=== PATIENT | female | born 1995 | race Caucasian/White ===

== ENCOUNTER 2018-03-09 11:21 | Emergency (ER) | payer MEDICAID, SELFPAY ==
[2018-03-09 11:24] VITALS: BP 114/65; PULSE 80; RESP 16; TEMP 37; O2SAT 98
--- NOTE | 2018-03-09 11:25 | W.ED.GENAD ---
Discharge Plan Disposition Patient Disposition: HOME Condition: Stable Discharge Details Chief Complaint: Abd Prob Clinical Impression: Gastritis Primary Care Provider: [facility] ED Provider: Tello Copeland Home Meds and New Rx's Prescriptions: No Action etonogestrel [Nexplanon] 68 MG implant 68 mg SQ ONCE Qty: 1 RF: 0 Discharge Instructions Instructions: Gastritis (ED) Additional Instructions: you can try taking omeprazole daily. You can also take tums or mylanta when the burning does happen if you have worsening pain, persistent vomit, or pain in the lower abdomen return to the emergency department Medical Decision Making 22 yo female comes in with cc of luq/epigastric burning after eating for 2 weeks. Denies vomit, lower abdominal pain and fevers. No prior abdominal surgeries. She has no tenderness on exam and has clear lung sounds and appears well systemically. Has no ruq pain and bedside u/s shows no gallstones and normal appearing gallbladder so doubt biliary source of pain. Advised to try ppi and f/u with pcp, return precautions given. Denies any trauma and has no luq tenderness so doubt splenic pathology Differential Diagnosis gastritis, gerd, biliary colic HPI General Mode of arrival: ambulatory. Date/Time Provider Initiated Documentation: 03/09/18 11:25. Limitations to Documentation: no limitations. Information obtained by: patient. History of Present Illness 22 year old F presents to the emergency department with the chief complaint of abdominal pain, described as mild, with intensity rated at 3. Quality is described as burning, and is localized to the abdomen. Patient reports no radiation. Patient started experiencing this week(s) (2) and it has been intermittent. Eating worsens symptoms . Patient notes no other symptoms.. Patient did receive the following treatments prior to arrival, none Related Data Home Medications Medication Instructions Recorded Confirmed etonogestrel [Nexplanon] 68 mg SQ ONCE #1 implant 11/08/16 Allergies Allergy/AdvReac Type Severity Reaction Status Date / Time No Known Allergies Allergy Unverified 05/31/17 15:08 Review of Systems Review of Systems All systems reviewed & are unremarkable except as noted in HPI and below Constitutional Denies chills, Denies fever(s) and Denies weakness ENT Denies change in voice Cardiovascular Denies chest pain and Denies dyspnea Respiratory Denies dyspnea Gastrointestinal Denies nausea and Denies vomiting Genitourinary Denies dysuria Musculoskeletal Denies joint swelling Integumentary/Breasts Denies rash Neurologic Denies weakness [facility] Surgical History Tonsillectomy and adenoidectomy Social History Smoking/Tobacco Use Status: Never Exam Const General: no acute distress Orientation: alert HENMT Head: normal to inspection Ears: external ears normal General nose exam: external nose normal Mouth: moist mucous membranes Eyes General: appearance normal, both eyes and all related structures Neck Neck: normal visual inspection Resp Effort & Inspection: normal respiratory effort and able to speak in complete sentences Cardio Rate: regular rate GI Inspection: normal to inspection Palpation: soft Skin General skin exam: no rashes or lesions noted Neuro General: alert and oriented x3 Extrem General: normal to inspection Psych Mental Status: mental status grossly normal
[2018-03-09 11:48] VITALS: BP 114/65; PULSE 80; RESP 16; TEMP 37; O2SAT 98
--- NOTE | 2018-03-09 11:50 | ED.GENADUL_ITS ---
Discharge Plan Disposition Patient Disposition: HOME Condition: Stable Discharge Details Chief Complaint: Abd Prob Clinical Impression: Gastritis Primary Care Provider: [facility] ED Provider: Tello Copeland Home Meds and New Rx's Prescriptions: No Action etonogestrel [Nexplanon] 68 MG implant 68 mg SQ ONCE Qty: 1 RF: 0 Discharge Instructions Instructions: Gastritis (ED) Additional Instructions: you can try taking omeprazole daily. You can also take tums or mylanta when the burning does happen if you have worsening pain, persistent vomit, or pain in the lower abdomen return to the emergency department Medical Decision Making 22 yo female comes in with cc of luq/epigastric burning after eating for 2 weeks. Denies vomit, lower abdominal pain and fevers. No prior abdominal surgeries. She has no tenderness on exam and has clear lung sounds and appears well systemically. Has no ruq pain and bedside u/s shows no gallstones and normal appearing gallbladder so doubt biliary source of pain. Advised to try ppi and f/u with pcp, return precautions given. Denies any trauma and has no luq tenderness so doubt splenic pathology Differential Diagnosis gastritis, gerd, biliary colic HPI General Mode of arrival: ambulatory . Date/Time Provider Initiated Documentation: 03/09/18 11:25 . Limitations to Documentation: no limitations . Information obtained by: patient . History of Present Illness 22 year old F presents to the emergency department with the chief complaint of abdominal pain, described as mild, with intensity rated at 3. Quality is described as burning, and is localized to the abdomen. Patient reports no radiation. Patient started experiencing this week(s) (2) and it has been intermittent. Eating worsens symptoms . Patient notes no other symptoms.. Patient did receive the following treatments prior to arrival, none Related Data Home Medications Medication Instructions Recorded Confirmed etonogestrel [Nexplanon] 68 mg SQ ONCE #1 implant 11/08/16 Allergies Allergy/AdvReac Type Severity Reaction Status Date / Time No Known Allergies Allergy Unverified 05/31/17 15:08 Review of Systems Review of Systems All systems reviewed & are unremarkable except as noted in HPI and below Constitutional Denies chills, Denies fever(s) and Denies weakness ENT Denies change in voice Cardiovascular Denies chest pain and Denies dyspnea Respiratory Denies dyspnea Gastrointestinal Denies nausea and Denies vomiting Genitourinary Denies dysuria Musculoskeletal Denies joint swelling Integumentary/Breasts Denies rash Neurologic Denies weakness [facility] Surgical History Tonsillectomy and adenoidectomy Social History Smoking/Tobacco Use Status: Never Exam Const General: no acute distress Orientation: alert HENMT Head: normal to inspection Ears: external ears normal General nose exam: external nose normal Mouth: moist mucous membranes Eyes General: appearance normal, both eyes and all related structures Neck Neck: normal visual inspection Resp Effort & Inspection: normal respiratory effort and able to speak in complete sentences Cardio Rate: regular rate GI Inspection: normal to inspection Palpation: soft Skin General skin exam: no rashes or lesions noted Neuro General: alert and oriented x3 Extrem General: normal to inspection Psych Mental Status: mental status grossly normal
== END 2018-03-09 11:48 | disposition home or self-care (01) ==
PROVIDERS: Emergency Provider Emergency Medicine; PCP Advanced Practice Midwife
DX: K52.9 Noninfective gastroenteritis and colitis, unspecified (principal)
CPT/HCPCS: 81025; 99283

== ENCOUNTER 2019-10-02 11:37 | Outpatient (REF) | payer MEDICAID, SELFPAY ==
--- NOTE | 2019-10-02 11:05 | PAPFT_PTH ---
PATIENT: Tuyet Suarez LOC: [facility] U#:[id number] AGE/SX: 24/F ROOM: RE10/02/[address]: BREANNE Wade : 1995 BED: DIS: 10/02/2019 SPEC #: [id number] RECD: 10/02/19 18:36 STATUS: JESUS REAurelio #: [id number] CODY: 10/02/19 11:[address]: Carmel Alonso DEPT: [facility] Cytology RECD BY: Gavi Ventura ENTERED: 10/02/19 18:36 SP TYPE: PAPFT LAMBERTO DR: Melanie Lake CNM Tissues: 1 - CX/ENDOCX FOR PAP SMEARS Procedures: PAP THIN PREP/[facility] Screening Comments: [id number]
[2019-10-03 14:28] LABS: Chlamydia Result Negative (Negative); GC Result Negative (Negative)
== END 2019-10-02 11:57 ==
LOC: LBN 11:37
PROVIDERS: PCP Advanced Practice Midwife; Visit Provider Nurse Practitioner Family
DX: Z11.3 Encounter for screening for infections with a predominantly sexual mode of transmission (principal); Z12.4 Encounter for screening for malignant neoplasm of cervix; R87.612 Low grade squamous intraepithelial lesion on cytologic smear of cervix (LGSIL)
CPT/HCPCS: 87491; 87591; 88142

== ENCOUNTER 2021-08-14 16:12 | Outpatient (REF) | payer MEDICAID, SELFPAY ==
[2021-08-14 21:16] LABS: Bilirubin Negative (Negative); Blood Negative (Negative); Clarity Clear (Clear); Glucose Negative (Negative); Ketones Negative (Negative); Leukocyte Esterase Large (Negative); Nitrite Negative (Negative); Specific Gravity 1.015 (1.005-1.025); Urobilinogen 0.2 EU/dL (Up TO 0.2)
[2021-08-14 21:24] LABS: Bacteria Few HPF (Negative); Epithelial Cells Negative HPF (Negative); RBC Negative HPF (0-2); WBC 20-50 HPF (0-5)
[2021-08-14 21:25] LABS: C & S Indicated? Yes; Casts Negative LPF (Negative); Crystals Negative HPF (Negative); Mucus Negative (Negative)
[2021-08-17 10:37] LABS: HIV-1/2 Ag & Ab Screen Negative (Negative)
[2021-08-17 12:13] LABS: Syphilis Serology (RPR) Negative (Negative)
[2021-08-17 19:18] LABS: Chlamydia Result Negative (Negative); GC Result Negative (Negative)
== END 2021-08-14 16:13 | disposition home or self-care (01) ==
LOC: LBN 16:12
PROVIDERS: PCP Advanced Practice Midwife; Visit Provider Nurse Practitioner Family
DX: N39.0 Urinary tract infection, site not specified (principal); N89.8 Other specified noninflammatory disorders of vagina; R30.0 Dysuria; Z11.3 Encounter for screening for infections with a predominantly sexual mode of transmission; Z11.4 Encounter for screening for human immunodeficiency virus [HIV]
CPT/HCPCS: 87077; 87389; 87491; 87591; 81003; 81015; 86592; 87086; 87186; 87480; 87510; 87660

== ENCOUNTER 2021-11-25 16:14 | Outpatient (REF) | payer MEDICAID, SELFPAY ==
--- NOTE | 2021-11-25 15:45 | PAPFT_PTH ---
PATIENT: Tuyet Suarez LOC: [facility] U#:[id number] AGE/SX: 26/F ROOM: RE11/25/[address]: Judith Copeland NP : 1995 BED: DIS: 11/25/2021 SPEC #: [id number] RECD: 11/25/21 18:32 STATUS: JESUS REAurelio #: [id number] CODY: 11/25/21 15:[address]: Judith Copeland NP DEPT: [facility] Cytology RECD BY: Gavi Ventura ENTERED: 11/25/21 18:32 SP TYPE: PAPFT OTHR DR: Melanie Lake CNM Tissues: 1 - CX/ENDOCX FOR PAP SMEARS Procedures: PAP THIN PREP/[facility] Screening Comments: [id number]
== END 2021-11-25 16:15 | disposition home or self-care (01) ==
LOC: LBN 16:14
PROVIDERS: PCP Advanced Practice Midwife; Visit Provider Nurse Practitioner Women's Health
DX: Z12.4 Encounter for screening for malignant neoplasm of cervix (principal)
CPT/HCPCS: 88142

== ENCOUNTER 2022-03-02 01:35 | Outpatient (CLI) | payer MEDICAID, SELFPAY ==
--- NOTE | 2022-03-02 07:00 | DI.US_ITS ---
Exam(s) US PELVIS TRANSVAGINAL EXAM: US PELVIS TRANSVAGINAL CLINICAL HISTORY: anatomy,dysfunctional uterine bleeding, n93.8. TECHNIQUE: Transabdominal and transvaginal pelvic ultrasound was performed using standard protocol. COMPARISON: No exams were available for comparison FINDINGS: KIDNEYS: Limited renal evaluation is unremarkable. UTERUS: Position: Retroverted. Size: 6.7 long by 3.4 AP by 5.2 transverse cm Endometrium: 1.0 cm. Normal for patient's menstrual status. Myometrium: Unremarkable. Cervix: Unremarkable. OVARIES: Right: 3.5 x 2.1 x 2.4 cm Cyst or mass: No suspicious cystic or solid masses. There is a 2.2 x 1.6 x 1.8 cm simple cyst with a single thin septation. This is likely physiologic. Left: 2.8 x 1.7 x 1.8 cm Cyst or mass: No suspicious cystic or solid masses. DOPPLER: Color: Symmetric and uniform flow to both ovaries. CUL-DE-SAC: Free fluid: There is a trace amount of free fluid adjacent to the right ovary. Other: None. IMPRESSION: 1. Limited evaluation of the kidneys is unremarkable. 2. Normal-appearing uterus with endometrial stripe within normal limits. 3. Unremarkable bilateral ovaries. DATA REPOSITORY:
== END 2022-03-02 01:55 ==
PROVIDERS: PCP Advanced Practice Midwife; Visit Provider Obstetrics & Gynecology
DX: N93.8 Other specified abnormal uterine and vaginal bleeding (principal)
CPT/HCPCS: 76830; 76856

== ENCOUNTER 2022-11-29 14:24 | Outpatient (REF) | payer SELFPAY ==
--- NOTE | 2022-11-29 14:10 | PAPFT_PTH ---
PATIENT: Tuyet Suarez LOC: [facility] U#:[id number] AGE/SX: 27/F ROOM: RE11/29/[address]: Judith Copeland NP : 1995 BED: DIS: 11/29/2022 SPEC #: [id number] RECD: 11/30/22 15:33 STATUS: JESUS REAurelio #: [id number] CODY: 11/29/22 14:[address]: Judith Copeland NP DEPT: [facility] Cytology RECD BY: Jaclyn Romero ENTERED: 11/30/22 15:33 SP TYPE: PAPFT OTHR DR: Melanie Lake CNM Tissues: 1 - CX/ENDOCX FOR PAP SMEARS Procedures: PAP THIN PREP/[facility] Screening Comments: [id number]
== END 2022-11-29 14:25 | disposition home or self-care (01) ==
LOC: LBN 14:24
PROVIDERS: PCP Advanced Practice Midwife; Visit Provider Nurse Practitioner Women's Health
DX: Z12.4 Encounter for screening for malignant neoplasm of cervix (principal)
CPT/HCPCS: 88142

== ENCOUNTER → 2022-12-03 02:58 | Outpatient (CLI) | payer SELFPAY ==
--- NOTE | 2022-12-03 08:00 | DI.US_ITS ---
Exam(s) US PELVIS TRANSVAGINAL EXAM: US PELVIS TRANSVAGINAL CLINICAL HISTORY: pelvic pain,r10.2 TECHNIQUE: Transabdominal and transvaginal imaging was performed using standard protocol. COMPARISON: US US PELVIS TRANSVAGINAL from 03/02/2022 FINDINGS: Transabdominal images are limited by empty bladder. UTERUS: Retroverted 6.3 x 2.9 x 4.7 cm Endometrium: 5 mm Myometrium: Unremarkable. Cervix: Unremarkable. OVARIES: Right: Cyst or mass: None. Left: Cyst or mass: 1.3 centimeter follicle. DOPPLER: Color: Symmetric and uniform flow to both ovaries. No hyperemia. CUL-DE-SAC: Free fluid: None. IMPRESSION: 1. Normal-appearing uterus with endometrial stripe within normal limits. 2. Unremarkable bilateral ovaries. DATA REPOSITORY:
== END ==
PROVIDERS: PCP Advanced Practice Midwife; Visit Provider Nurse Practitioner Women's Health
DX: R10.2 Pelvic and perineal pain (principal)
CPT/HCPCS: 76830; 76856

== ENCOUNTER 2023-01-27 15:28 | Outpatient (CLI) | payer MEDICAID, SELFPAY ==
[2023-01-27 12:52] LABS: TSH 14.65 uIU/mL (0.36-3.74)
--- OUTSIDE RECORDS SUMMARY | 2023-01-27 15:30 | XMS_ITS | Continuity of Care Document ---
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 Name Role Phone Farheen Da Silva Primary Care Physician Encounter [facility] Date(s): 07/01/22 - 07/01/[address] [id number] Discharge Disposition: Home or Self Care Attending Physician: Sheba Shaw PA-C Admitting Physician: Sheba Shaw PA-C Referring Physician: Sheba Shaw PA-C Allergies, Adverse Reactions, Alerts Substance Reaction Severity Status PLUM Unknown Active COCONUT Unknown Active Assessment and Plan Diagnostic Tests Pending * Ova/Parasite Exam [facility] 07/01/22 Immunizations Given and Recorded Vaccine Date Status Refusal Reason SARS-CoV-2 (COVID-19) mRNA-1273 vaccine 07/22/20 R ecorded SARS-CoV-2 (COVID-19) mRNA-1273 vaccine 06/19/20 R ecorded Medications Multivitamins 1 tab, Oral, Daily, Tablet 28 mg iron-800 mcg; for 100 days Start Date: 10/27/21 Status: Ordered Problem List Condition Confirmation Course Effective Dates Status Health [facility] Informant Asthma Confirmed 02/21/20 Active Procedures Procedure Date Related Diagnosis Body Site Status Extraction of wisdom tooth 02/20/17 Completed operation on tonsils 02/20/14 Comp leted Plastic Surgery - Nose repair 1 Completed 1Nose repair after dog bite Results Laboratory List Name Date Fecal Bacterial Pathogens by PCR [facility] 06/21 03/15 Automated Diff 07/01/22 CBC w/ Diff 07/01/22 Comprehensive Metabolic Panel 07/01/22 Lipase Level 07/01/22 Magnesium Level 07/01/22 Most recent to oldest [Reference Range]: 1 WBC [5.0-10.0 x10^3/mcL] 7.6 x10^3/mcL (07/01/22 10:03 AM) RBC [4.1-5.3 x10^6/mcL] 4.8 x10^6/mcL (07/01/22 10:03 AM) Neutro Auto [40.0-75.0 %] 54.9 % (07/01/22 10:03 AM) Lymph Auto [20.0-50.0 %] 23.8 % (07/01/22 10:03 AM) Jay Auto [2.0-15.0 %] 13.3 % (07/01/22 10:03 AM) Basophil Auto [0.0-1.0 %] 0.8 % (07/01/22 10:03 AM) BUN [7-18 mg/dL] 8 mg/dL (07/01/22 10:03 AM) Glucose Level [74-106 mg/dL] 86 mg/dL (07/01/22 10:03 AM) Potassium Level [3.5-5.1 mmol/L] 4.5 mmo l/L (07/01/22 10:03 AM) MCV [80.0-96.0 fL] 90.0 fL (07/01/22 10:03 AM) AST [15-37 unit/L] 20 unit/L (07/01/22 10:03 AM) ALT [14-59 unit/L] 32 unit/L (07/01/22 10: AM) MCHC [31.0-35.0 g/dL] 33.5 g/dL (07/01/22 10:03 AM) Sodium Level [136-145 mmol/L] 137 mmol/L (07/01/22 10:03 AM) Hct [37.0-47.0 %] 43.0 % (07/01/22 10:03 AM) Lipase Level [16-77 unit/L] 29 unit/L (07/01/22 10:03 AM) Calcium Level [8.5-10.1 mg/dL] 9.2 mg/dL (07/01/22 10:03 AM) Albumin Level [3.4-5.0 g/dL] 4.7 g/dL (07/01/22 10:03 AM) Protein Total [6.4-8.2 g/dL] 7.6 g/dL (07/01/22 10: AM) MCH [26.0-32.0 pg] 30.1 pg (07/01/22 10:03 AM) Magnesium Level [1.8-2.4 mg/dL] 1.9 mg/d L (07/01/22 10: AM) Neutro Absolute 4.2 x10^3/mcL *NA* (07/01/22 10:03 AM) Bilirubin Total [0.2-1.0 mg/dL] 0.7 mg/d L (07/01/22 10:03 AM) Hgb [12.0-16.0 g/dL] 14.4 g/dL (07/01/22 10:03 AM) Alk Phos [46-146 unit/L] 63 unit/L (07/01/22 10: AM) Platelets [130-450 x10^3/mcL] 334 x10^3/ mcL (07/01/22 10:03 AM) CO2 [21-32 mmol/L] 26 mmol/L (07/01/22 10:03 AM) eGFR Non-AA [>=60] 101 (07/01/22 10: AM) eGFR AA [>=60] 101 (07/01/22 10:03 AM) Chloride Level [98-107 mmol/L] 103 mmol/ L (07/01/22 10: AM) RDW-CV [11.7-17.0 %] 11.9 % (07/01/22 10:03 AM) Imm Gran Auto [0.0-0.9 %] 0.3 % (07/01/22 10:03 AM) Slide Review Not Indicated (07/01/22 10: AM) Creatinine Level [0.55-1.02 mg/dL] 0.83 mg/dL (07/01/22 10:03 AM) Salmonella PCR [facility] [Negative] Negative *NA* (07/01/22 1:17 PM) Shigella/Enteroinvasive E. coli [facility] [Neg ative] Negative *NA* (07/01/22 1:17 PM) HN LAB CAMPYLOBACTER PCR [facility] [Negative] Negative *NA* (07/01/22 1:17 PM) Shiga Toxin PCR [facility] [Negative] Negative 1 *NA* (07/01/22 1:17 PM) Eos, Auto [1.0-6.0 %] 6.9 % *HI* (07/01/22 10:03 AM) 1Result Comment: Test performed [place] [address] Social History Social History Type Response Tobacco Never tobacco user T obacco Use:. Sex Female Patient Care team information Care Team Personnel Name: Farheen Da Silva MD Position: Physician - Women's Health Member Role: Primary Care Physician Address: Address: [address] [address]- [place]
[2023-01-27 19:45] LABS: Estradiol 67 pg/mL (See Note)
[2023-01-27 20:13] LABS: FSH 9.8 mIU/mL (See Note)
[2023-01-27 20:15] LABS: Prolactin 7.2 ng/mL (See Note)
[2023-01-28 15:51] LABS: Antimullerian Hormone 1.7 ng/mL (0.89-9.9)
== END 2023-01-27 15:29 | disposition home or self-care (01) ==
LOC: LBO 15:28
PROVIDERS: PCP Advanced Practice Midwife; Visit Provider Obstetrics & Gynecology Gynecology
DX: Z31.9 Encounter for procreative management, unspecified (principal)
CPT/HCPCS: 36415; 82670; 83001; 83520; 84146; 84443

== ENCOUNTER 2023-08-05 00:47 | Emergency (ER) | payer MEDICAID, SELFPAY ==
[2023-08-05] VITALS (12 sets, daily range): BP systolic 106–125; BP diastolic 69–80; PULSE 60–72; RESP 14–22; TEMP 37; O2SAT 99
--- NOTE | 2023-08-05 00:45 | RT.EKG_ITS ---
APPROVED REPORT Exam: Resting ECG Reason for Exam: chest pain Patient Location: E HR:65 bpm ECG Measurements Heart Rate 65 AXIS IL 125 P -5 QRSd 99 QRS 54 QT 404 T 47 QTc 420 Conclusion Sinus rhythm...normal P axis, V-rate 60- 99
--- NOTE | 2023-08-05 01:00 | DI.RAD_ITS ---
Exam(s) XR CHEST 2V PA LATERAL EXAM: XR CHEST 2V PA LATERAL CLINICAL HISTORY: chest pain. TECHNIQUE: 2D digital imaging was performed. COMPARISON: No exams were available for comparison FINDINGS: 2 views: Heart size is normal. The mediastinum is not widened. Lungs are clear. No infiltrates nor pleural effusions. IMPRESSION: No acute pulmonary findings. DATA REPOSITORY: RADIATION DOSE DELIVERED:
[2023-08-05] MEDS: Acetaminophen 500 MG TAB 1000 MG PO (01:20)
[2023-08-05] MEDS: Ketorolac 15 MG/ML VIAL IM (01:20)
[2023-08-05 01:36] LABS: Troponin I < 50 ng/L (< or =60)
[2023-08-05 01:39] LABS: TSH (W/Ref FT4) 36.86 uIU/mL (0.36-3.74)
[2023-08-05] MEDS: Lidocaine 5% Patch 1 PATCH TP (01:56)
--- NOTE | 2023-08-05 02:00 | ED.GENADUL_ITS ---
Discharge Plan Disposition Patient Disposition: Home Condition: Good Discharge Details Clinical Impression: Chest pain, pleuritic Primary Care Provider: Lizzette Dailey ED Provider: Nancy Rivas Home Meds and New Rx's Prescriptions: Continued levothyroxine [Levoxyl] 50 mcg tablet 50 mcg PO DAILY Qty: 60 4RF prenat.vits,liane,brs-ezgr-chinl Tablet 1 tab PO DAILY Discharge Instructions Instructions: Pleuritic Chest Pain ED Additional Instructions: Tylenol, ibuprofen, and lidocaine patches over the counter for pain; follow the directions on the package. Call your primary care doctor today to schedule an appointment within 2-3 days to follow up on your visit here. Return to the emergency department for new or worsening symptoms including new/different/worse pain, difficulty breathing, feeling like you are going to pass out, or if you have any other concerns. HPI General Mode of arrival: ambulatory . Date/Time Provider Initiated Documentation: 08/05/23 00:54 . Limitations to Documentation: no limitations . Information obtained by: patient and family . HPI Narrative: 27yo F with hx hypothyroid, denies other past medical history, presenting with one day of pleuritic left sided chest pain. Went to OSH ED at around 5pm yesterday evening, reports having a normal EKG, CXR, and bloodwork and was discharged home. Pain persists and is now worse. Feels crampy, severe, worse with deep breathing. Mild improvement with home ibuprofen. Feels like the pain makes it a little hard to breath, otherwise no shortness of breath. No LE edema. No family history of early cardiac disease or sudden unexpected . Family history of mitral valve prolapse; she has been evaluated for this and was normal. Covid two weeks ago. Currently no fevers, cough, n[place]ase[place], vomiting, abdominal pain, rash, or other concerns. Related Data Home Medications Medication Instructions Recorded Confirmed prenat.vits,liane,tzj-ilzt-woizm 1 tab PO DAILY 02/18/22 08/05/23 levothyroxine 50 mcg tablet 50 mcg PO DAILY #60 tabs 02/11/23 08/05/23 (Levoxyl) Previous Rx's Medication Instructions Recorded levothyroxine 50 mcg tablet 50 mcg PO DAILY #60 tabs 02/11/23 (Levoxyl) Allergies Allergy/AdvReac Type Severity Reaction Status Date / Time coconut Allergy Verified 01/27/23 10:25 plum AdvReac Severe Uncoded 01/27/23 10:25 General Stated Complaint: Chest Pain SAPNA: 4 Review of Systems Narrative: see HPI Exam Narrative Exam Narrative: General: Alert, in no acute distress. Head: Normocephalic, atraumatic Neck: Trachea midline, ?Neck supple. Cardiac: ?RRR, no murmurs appreciated Resp: No respiratory distress. CTAB. Abd: ?Soft, non-distended, nontender Chest: Left anterior superior chest wall TTP. Extremities: ?No deformities.? No peripheral edema. Neurologic: GCS 15. ? Moves all extremities freely against gravity Course Vital Signs Vital signs: Vital Signs Temperature 37 C 08/05/23 00:52 Pulse 72 08/05/23 00:52 Respiratory Rate 14 08/05/23 00:52 Blood Pressure 125/80 08/05/23 00:52 Pulse Oximetry 99 08/05/23 00:52 Temperature 37 C 08/05/23 00:56 Temperature Source Temporal Artery Scan 08/05/23 00:56 Pulse 72 08/05/23 00:52 Respiratory Rate 20 08/05/23 00:56 Respiratory Effort Normal 08/05/23 00:56 Respiratory Depth Normal 08/05/23 00:56 Respiratory Pattern Normal 08/05/23 00:56 Blood Pressure 125/80 08/05/23 00:52 Blood Pressure Position Sitting 08/05/23 00:52 Pulse Oximetry 99 08/05/23 00:52 Oxygen Delivery Method Room Air 08/05/23 00:56 Oxygen Flow Rate 0 08/05/23 00:56 Pain Level 6 08/05/23 00:56 Lab/Test Results Lab/Test Results: Laboratory Tests Range/Units 08/05/23 01:05 Troponin I (< or =60) ng/L < 50 TSH (0.36-3.74) uIU/mL 36.86 H Medical Decision Making 27yo F with hx hypothyroid, denies other past medical history, presenting with one day of pleuritic left sided chest pain. Went to OSH ED at around 5pm yesterday evening, reports having a normal EKG, CXR, and bloodwork and was discharged home. Pain persists and is now worse; crampy, severe, worse with deep breathing. No family history of early cardiac disease or sudden unexpected . Family history of mitral valve prolapse; she has been evaluated for this and was normal. Covid two weeks ago. Paper laboratory results from OSH provided by patient and reviewed, 08/03/231747 EDT: WBC 11.6 Hg 13.4 Plt 341 D-dimer <0.19mg/L (negative) (would not further pursue pulmonary embolism with CT imaging as she has no hypoxia or tachycardia) CMP Bili mildly elevated at 1.3, otherwise unremarkable U preg negative Vital signs and physical exam reassuring on arrival, does have reproducible left chest wall tenderness. I discussed with patient and family that OSH workup seemed appropriate and that her labs are reassuring. I offered to add a troponin and thyroid studies, as well as repeat EKG and CXR as I cannot review those personally. EKG NSR, appropriate intervals, no ST segment or T wave abnormalities to suggest occlusive HI. CXR independently reviewed, no focal pneumonia or pneumothorax on my view, agree with radiology read below. Troponin negative, HEART score 0; would not further pursue ACS. Tylenol, toradol, and lidocaine patch for pain. On reassessment she reports feeling improved. Discharged home to followup with PCP; discharge instructions and return precautions were reveiwed with pt who verbalized understanding. All questions were answered and she is in full agreement with the plan. Imaging Data Radiologic Study: Imaging: X-Ray Radiologist's impression: IMPRESSION: No acute findings. Lab Data Lab results reviewed: Yes I reviewed the patient's lab results. Labs: Laboratory Tests Range/Units 08/05/23 01:05 Troponin I (< or =60) ng/L < 50 TSH (0.36-3.74) uIU/mL 36.86 H Free T4 (0.76-1.46) ng/dL 0.78 Quality:SDOH Health Related Social Needs: No Data to Display PFSH All Active Problems (Updated 08/05/23 @ 02:17 by Nancy Rivas MD) Chest pain, pleuritic (Acute) Hypothyroidism (acquired) (Acute) Desire for (Acute) 01/2023. Nl AMH, E2, FSH. Elevated TSH Rx with Levoxyl. Semen analysis ordered. DUB (dysfunctional uterine bleeding) (Acute) LGSIL on Pap smear of cervix (Acute) 2019 Surgical History Tonsillectomy and adenoidectomy Social History (Updated 02/11/23 @ 16:53 by Lizzette Dailey MD) Smoking/Tobacco Use Status: Never Smoking risk assessment performed?: Yes Alcohol Intake: current Drug use: Never Substance use type: does not use Household members: spouse and other Details: H-Wili Mendez. Number of Children: 0 Communication Needs: None current occupation: works at a [employer] Sexually active: Yes Do you think of yourself as: straight/heterosexual Current gender identity: female What type of physical activity do you participate in: regular exercise Frequency: 3-4 times per week Seatbelt use: always Helmet use: Yes Drive intox or ride w/intox helper driver: No Do you feel safe at home: Yes Do you feel safe in your relationship?: Yes Female Reproductive History Menstrual control method: none History History 0 Para Hx # Term Pregnancies Multiple births Hx # Pregnancies Ectopic pregnancies AB induced Hx Number of Living Children AB spontaneous
[2023-08-05 02:05] LABS: FREE T4 0.78 ng/dL (0.76-1.46)
--- NOTE | 2023-08-05 02:46 | DI.VRAD_ITS ---
PROCEDURE INFORMATION: Exam: XR Chest Exam date and time: 08/05/2023 1:17 AM Age: 27 years old Clinical indication: Chest wall pain; Additional info: Chest pain TECHNIQUE: Imaging protocol: Radiologic exam of the chest. Views: 2 views. COMPARISON: No relevant prior studies available. FINDINGS: Lungs: Unremarkable. No consolidation. Pleural spaces: Unremarkable. No pleural effusion. No pneumothorax. Heart/Mediastinum: Unremarkable. No cardiomegaly. Bones/joints: Unremarkable. IMPRESSION: No acute findings. Dictated and Authenticated by: Tello Macias MD. Ordering:ROBERT Cruz MD
== END 2023-08-05 02:33 | disposition home or self-care (01) ==
PROVIDERS: Emergency Provider Student in an Organized Health Care Education/Training Program; PCP Obstetrics & Gynecology Gynecology
DX: R07.9 Chest pain, unspecified (principal); E03.9 Hypothyroidism, unspecified
CPT/HCPCS: 93005; 96372; 99285; 71046; 84439; 84443; 84484; 93010; 99284; J1885

== ENCOUNTER 2024-09-11 16:48 | Outpatient (CLI) | payer SELFPAY ==
[2024-09-11 17:10] LABS: HCG Quant, Pregnancy 1 mIU/mL (1-3); TSH (W/Ref FT4) 6.19 uIU/mL (0.36-3.74)
== END 2024-09-11 16:49 | disposition home or self-care (01) ==
LOC: LBO 16:52
PROVIDERS: PCP Obstetrics & Gynecology Gynecology; Visit Provider Nurse Practitioner Women's Health
DX: N93.8 Other specified abnormal uterine and vaginal bleeding (principal); E03.9 Hypothyroidism, unspecified
CPT/HCPCS: 36415; 84439; 84443; 84702

== ENCOUNTER 2025-01-09 15:17 | Outpatient (CLI) | payer SELFPAY ==
[2025-01-09 16:34] LABS: TSH (W/Ref FT4) 0.01 uIU/mL (0.55-4.78)
== END 2025-01-09 15:18 | disposition home or self-care (01) ==
LOC: LBO 15:20
PROVIDERS: Visit Provider Nurse Practitioner Women's Health
DX: E03.9 Hypothyroidism, unspecified (principal)
CPT/HCPCS: 36415; 84439; 84443